=== PATIENT | female | born 2000 | race Caucasian/White ===

== ENCOUNTER → 2019-07-08 | Outpatient (CLI) | payer MEDICAID ==
[2019-07-08 15:04] LABS: ARTERIAL BLOOD BASE EXCESS 0.2 mmol/L; ARTERIAL BLOOD H2CO3 1.26 mmol/L (1.05-1.35); ARTERIAL BLOOD HCO3 25.1 mmol/L (20-24); ARTERIAL BLOOD O2 SATURATION 96.9 % (94-98); ARTERIAL BLOOD PCO2 41.7 mmHg (35-45); ARTERIAL BLOOD PO2 89.9 mmHg (80-100); ARTERIAL BLOOD TOTAL CO2 26.4 mmol/L (21-25)
[2019-07-08 15:05] LABS: ARTERIAL BLOOD FIO2 2L
== END ==
LOC: OD 13:49
PROVIDERS: ATTEND Internal Medicine Pulmonary Disease
DX: A49.8 Other bacterial infections of unspecified site (principal); J96.11 Chronic respiratory failure with hypoxia
CPT/HCPCS: 82803; 87070; 87077; 87205